=== PATIENT | female | born 1995 | race Caucasian/White ===

== ENCOUNTER 2019-02-22 01:46 | Emergency (ER) | payer OTHER, MEDICAID ==
[~2019-02-22] VITALS: Ht 172.7 cm; Wt 90.7 kg
[2019-02-22] MEDS ORDERED: VRAYLAR1.5 MG PO (02:10)
[2019-02-22 02:16] LABS: URINE BILIRUBIN NEGATIVE (Negative); URINE BLOOD NEGATIVE (Negative); URINE CLARITY CLEAR; URINE COLOR YELLOW; URINE GLUCOSE-RANDOM NEGATIVE (Negative); URINE KETONES NEGATIVE (Negative); URINE LEUKOCYTES-REFLEX NEGATIVE (Negative); URINE NITRITE-REFLEX NEGATIVE (Negative); URINE PROTEIN NEGATIVE (Negative); URINE SPECIFIC GRAVITY 1.025 (1.005-1.030); URINE UROBILINOGEN 0.2 E.U./dl (0.2-1.0)
[2019-02-22] MEDS ORDERED: FLAGYL500 M1 PO (02:45)
[2019-02-22 03:02] VITALS: BP 134/79
[2019-02-22 17:07] LABS: HEPATITIS B SURFACE AG Negative (Negative)
== END 2019-02-22 03:02 | disposition home or self-care (01) ==
LOC: M.ERS 01:46
PROVIDERS: Emergency Medicine
DX: N76.0 Acute vaginitis (principal); B96.89 Other specified bacterial agents as the cause of diseases classified elsewhere; F31.9 Bipolar disorder, unspecified; F17.210 Nicotine dependence, cigarettes, uncomplicated; Z91.030 Bee allergy status; Z91.018 Allergy to other foods

== ENCOUNTER 2020-12-29 15:11 | Emergency (ER) | payer OTHER, MEDICAID ==
[~2020-12-29] VITALS: Ht 172.7 cm; Wt 96.2 kg
[~2020-12-29 15:11] MED LIST: FLAGYL500 M1 PO; VRAYLAR1.5 MG PO
[2020-12-29 15:49] LABS: URINE BLOOD NEGATIVE (Negative); URINE CLARITY CLEAR; URINE COLOR YELLOW; URINE GLUCOSE-RANDOM NEGATIVE (Negative); URINE KETONES 1+ (Negative); URINE LEUKOCYTES-REFLEX NEGATIVE (Negative); URINE NITRITE-REFLEX NEGATIVE (Negative); URINE PROTEIN TRACE (Negative); URINE SPECIFIC GRAVITY >= 1.030 (1.005-1.030); URINE UROBILINOGEN 0.2 E.U./dl (0.2-1.0)
[2020-12-29 15:53] LABS: ICTOTEST (BILI CONFIRMATORY) Negative (Negative); URINE BILIRUBIN 1+ (Negative)
[2020-12-29 16:44] VITALS: BP 126/68
== END 2020-12-29 16:45 | disposition home or self-care (01) ==
LOC: M.ERS 15:11
PROVIDERS: Physician Assistant
DX: O12.12 Gestational proteinuria, second trimester (principal); O26.892 Other specified pregnancy related conditions, second trimester; R82.4 Acetonuria; R10.2 Pelvic and perineal pain; F17.210 Nicotine dependence, cigarettes, uncomplicated; Z3A.27 27 weeks gestation of pregnancy; Z91.030 Bee allergy status; Z91.018 Allergy to other foods